=== PATIENT | female | born 1995 | race Hispanic/Latino ===

== ENCOUNTER 2017-01-04 10:58 | Day surgery (SDC) | payer OTHER ==
[~2017-01-04] VITALS: Ht 165.1 cm; Wt 80.0 kg
[~2017-01-04 10:58] MED LIST: 0.9% Sodium Chloride 1,000 ML IV SCH; Docusate Sodium PO; POLY17PO2 PO; Sodium Chloride LOK Flush 10 mL Syringe IV PRN; fentaNYL-PF 50 mCg/mL 2 mL Inj IVPUSH PRN
[2017-01-04 11:27] VITALS: BP 118/73; PULSE 82; O2SAT 98
[2017-01-04 12:07] VITALS: BP 107/66; PULSE 73; RESP 16; O2SAT 96
[2017-01-04 12:17] VITALS: BP 114/69; PULSE 87; RESP 16; O2SAT 97
[2017-01-04 12:27] VITALS: BP 106/63; PULSE 70; RESP 16; O2SAT 99
--- NOTE | 2017-01-04 22:48 | ENDO ---
[address] [address] ENDOSCOPY PROCEDURE PATIENT: SOBIA LACKEY : 1995 MR#: [id number] ADMIT: 01/04/2017 JOB ID: [id number] DATE OF PROCEDURE: 01/04/2017 PROCEDURE: Flexible sigmoidoscopy. INDICATIONS: A 21-year-old female with a propensity toward constipation, who has been experiencing some red blood per rectum. She has improved with the addition of some soaked Joey seeds and ground flaxseed fiber supplementation. She still occasionally sees some red blood. Stools are on the firm side. SEDATION: 1. Versed 5 mg. 2. Fentanyl 100 mcg. COMPLICATIONS: None identified. BOWEL PREPARATION: Excellent in the left colon. PROCEDURE INFORMATION: After the risks and benefits were explained, written and verbal informed consent was obtained. The patient was brought into the endoscopy suite and placed into the left lateral decubitus position. Sedation was achieved using the above-stated medications with the addition of oxygen via nasal cannula. A digital rectal examination was accomplished and did not elicit any obvious anorectal pathology. I did not appreciate any external hemorrhoids. The patient had a tense anal sphincter mechanism but no perceived fissure or mass lesions palpated. The scope was introduced into the rectum and advanced under direct visualization to the level of the splenic flexure. Approximately 50-60 cm of scope was introduced. We encountered some solid brown stool debris at that point and decided to start to withdraw. The scope was slowly withdrawn to carefully examine the mucosa for any defects or lesions. Retroflexed views were accomplished in the rectum. The colon was decompressed. The scope was removed from the patient who tolerated the procedure well. FINDINGS: No proctitis. No colitis. No significant polyps or mass lesions throughout. Retroflexed views were unremarkable from within the rectum. Direct views through the anal canal disclosed mild internal hemorrhoids. I did not see a discrete fissure at present. ENDOSCOPIC DIAGNOSES: 1. Mild internal hemorrhoids. 2. Otherwise visually normal flexible sigmoidoscopy. RECOMMENDATIONS: 1. The patient is encouraged to continue bowel regimen as this has improved stool frequency. 2. She is again encouraged to stay hydrated and active. 3. I would recommend she add in an actual full fiber supplement on a daily basis to alter the consistency of stool. I suspect this will be much less traumatic for her hemorrhoidal cushions with each movement. 4. Follow up in GI clinic on an as needed basis if there are any persistent concerns.
== END 2017-01-04 23:59 | disposition home or self-care (01) ==
LOC: END 10:58
PROVIDERS: ATTEND Internal Medicine Gastroenterology
DX: K62.5 Hemorrhage of anus and rectum (principal); K64.8 Other hemorrhoids; K59.00 Constipation, unspecified
CPT/HCPCS: 45330; G0500; J2250; J3010; J7030

== ENCOUNTER 2017-01-31 16:26 | Emergency (ER) | payer OTHER ==
[~2017-01-31] VITALS: Ht 167.6 cm; Wt 82.7 kg
[~2017-01-31 16:26] MED LIST changes: -0.9% Sodium Chloride 1,000 ML IV SCH; -Sodium Chloride LOK Flush 10 mL Syringe IV PRN; -fentaNYL-PF 50 mCg/mL 2 mL Inj IVPUSH PRN
[2017-01-31 16:30] VITALS: BP 117/72; PULSE 66; RESP 14; O2SAT 98
[2017-01-31] MEDS ORDERED: DOCU-41 PO (16:34)
[2017-01-31 17:20] LABS: BASOPHILS % (AUTO) 0.2 % (0-3); EOSINOPHILS % (AUTO) 0.9 % (0-5); MONOCYTES % (AUTO) 6.2 % (4-12); Mean Corpuscular Hemoglobin 28.6 pg (27.0-35.0); Mean Corpuscular Volume 85.8 fL (81-100); NEUTROPHILS % (AUTO) 69.6 % (40-74); Platelet Count 261 bil/L (150-400)
[2017-01-31 17:37] LABS: APPEARANCE,URINE HAZY (CLEAR,HAZY); COLOR,URINE YELLOW (YELLOW)
[2017-01-31 17:38] LABS: OCCULT BLOOD,URINE NEGATIVE (NEGATIVE); UROBILINOGEN,URINE NORMAL (NORMAL)
[2017-01-31 17:39] LABS: Magnesium 1.9 mg/dL (1.6-2.6)
== END 2017-01-31 17:48 | disposition left against medical advice (07) ==
LOC: SED 16:26
DX: R10.31 Right lower quadrant pain (principal); Z53.21 Procedure and treatment not carried out due to patient leaving prior to being seen by health care provider